=== PATIENT | female | born 1955 | race Two or more races ===

== ENCOUNTER 2017-03-17 21:03 | Inpatient (IN) | payer MEDICAID ==
[~2017-03-17] VITALS: Ht 162.6 cm; Wt 105.0 kg
[~2017-03-17 21:03] MED LIST: BENA40TA2 PO; MELO-85 PO; METF-314 PO; MULT50TA14 OR; SIMV-8 PO
[2017-03-17] MEDS ORDERED: SODIUM CHLORIDE 0.9% 1,000 ML IV ONE (21:53)
[2017-03-17] MEDS ORDERED: SODIUM CHLORIDE 0.9% 1,000 ML IVB ONE (21:54)
[2017-03-17 22:18] LABS: Basophils # (auto) 0 uL; Basophils % (auto) 0.5 % (0.0-2.0); Eosinophils # (auto) 0.2 uL; Eosinophils % (auto) 3.1 % (0.0-7.0); Hematocrit 30.9 % (36.0-46.0); Hemoglobin 10.4 g/dL (12.2-16.2); Lymphocytes % (auto) 13.5 % (10.0-50.0); Mean Corpuscular Hemoglobin 27.3 pg (28.0-32.0); Mean Corpuscular Hgb Conc. 33.6 g/dL (32.0-36.0); Mean Corpuscular Volume 81.3 fL (80.0-100.0); Mean Platelet Volume 9.3 fL (7.4-10.4); Monocytes # (auto) 0.4 uL; Neutrophils % (auto) 77.9 % (37.0-80.0); Platelet Count (auto) 145 10^3/uL (140-450); Red Cell Distribution Width 15.6 % (11.6-16.0); White Blood Cell 7.8 10^3/uL (4.4-10.8)
[2017-03-17] MEDS ORDERED: PANTOPRAZOLE SODIUM 40 MG/10 ML VIAL IV ONE (22:30)
[2017-03-17 22:41] LABS: Albumin 2.2 g/dL (3.4-5.0); BUN/Creatinine Ratio 38.9; Calcium 8.3 mg/dL (8.5-10.1); Potassium 4.3 mmol/L (3.5-5.1)
[2017-03-17 22:46] LABS: Bilirubin, Total 1.1 mg/dL (0.2-1.0); Partial Thromboplastin Time 28.5 sec (22.64-33.71); Total Protein 5.5 g/dL (6.4-8.2)
[2017-03-17 22:47] LABS: INR 1.21 (0.9-1.15); Prothrombin Time 13.2 sec (9.37-12.3)
[2017-03-18] VITALS (15 sets, daily range): BP systolic 80–127; BP diastolic 44–73
[2017-03-18 00:04] LABS: Urine Bilirubin Negative (Negative); Urine Blood 1+ /uL (Negative); Urine Color Yellow (Yellow); Urine Glucose Normal (Normal); Urine Ketone 1+ (Negative); Urine Nitrite Negative (Negative); Urine RBC 13 /hpf (0 - 4); Urine Urobilinogen Normal (Negative); Urine pH 5.5 (5.0-8.0)
[2017-03-18 00:05] LABS: Urine Hyaline Cast F /lpf (0 - 2); Urine Mucus FEW (None Seen); Urine Squamous Epithelial Cell FEW /hpf (<5)
[2017-03-18] MEDS ORDERED: cefTRIAXone 1GM/50ML D5W 50 ML IV ONE (00:45)
[2017-03-18] MEDS ORDERED: ACETAMINOPHEN 325 MG TAB PO PRN (01:30)
[2017-03-18] MEDS ORDERED: MORPHINE SULF INJ 2 MG/ML SYRINGE 1ML IV PRN (01:30)
[2017-03-18] MEDS ORDERED: DEXTROSE (50%) 50ML SYRG IV PRN (01:30)
[2017-03-18] MEDS ORDERED: ALBUMIN 5% 250 ML IV ONE ×2 (01:30→05:15)
[2017-03-18] MEDS ORDERED: NITROGLYCERIN 0.4 MG SL TAB SL PRN (01:30)
[2017-03-18] MEDS: ONDANSETRON HCL 4 MG/2 ML VIAL IV PRN ×2 (02:48→16:53)
[2017-03-18] MEDS: SODIUM CHLORIDE 0.9% 1,000 ML IV SCH ×3 (02:49→21:11)
[2017-03-18 06:09] LABS: Hematocrit 24.6 % (36.0-46.0); Hemoglobin 8.3 g/dL (12.2-16.2)
[2017-03-18] MEDS: InsuLIN REG 1unit/0.01ml Soln (100units/ml) SC SCH ×3 (08:00→17:37)
[2017-03-18] MEDS: ACCU-CHEK COMFORT CURVE STRIP VI SCH ×4 (08:00→23:49)
[2017-03-18] MEDS: PANTOPRAZOLE SODIUM 40 MG/10 ML VIAL IV SCH ×2 (10:30→21:09)
[2017-03-18] MEDS: THIAMINE INJ 100 MG, MULTIPLE VITAMIN 10 ML, FOLIC ACID 1 MG, MAGNESIUM SULF SDV 50% 8 ... IV SCH ×5 (11:22)
[2017-03-18] MEDS ORDERED: OCTREOTIDE ACETATE 100 MCG in SODIUM CHL 0.9% 50 ML IV ONE (15:45)
[2017-03-18] MEDS: OCTREOTIDE ACETATE 500 MCG in SODIUM CHL 0.9% 99 ML IV SCH (16:00)
[2017-03-18 16:44] LABS: Hematocrit 22.9 % (36.0-46.0); Hemoglobin 7.8 g/dL (12.2-16.2)
[2017-03-18 18:17] LABS: Hematocrit 23.1 % (36.0-46.0); Hemoglobin 7.9 g/dL (12.2-16.2)
[2017-03-19] VITALS (13 sets, daily range): BP systolic 101–143; BP diastolic 52–79
[2017-03-19] MEDS: cefTRIAXone 1GM/50ML D5W 50 ML IV SCH (00:21)
[2017-03-19] MEDS: OCTREOTIDE ACETATE 500 MCG in SODIUM CHL 0.9% 99 ML IV SCH ×3 (00:22→22:30)
[2017-03-19 04:53] LABS: Basophils # (auto) 0 uL; Basophils % (auto) 0.4 % (0.0-2.0); DEFINITIVE VIEW TRANSMISSION; Eosinophils # (auto) 0.6 uL; Eosinophils % (auto) 6.8 % (0.0-7.0); Hematocrit 21.5 % (36.0-46.0); Hemoglobin 7.3 g/dL (12.2-16.2); Lymphocytes # (auto) 1.5 uL; Mean Corpuscular Hemoglobin 28.3 pg (28.0-32.0); Mean Corpuscular Hgb Conc. 33.7 g/dL (32.0-36.0); Mean Corpuscular Volume 84.1 fL (80.0-100.0); Mean Platelet Volume 9.1 fL (7.4-10.4); Monocytes # (auto) 0.5 uL; Monocytes % (auto) 6.1 % (0.0-12.0); Neutrophils # (auto) 5.7 uL; Neutrophils % (auto) 68.7 % (37.0-80.0); Platelet Count (auto) 120 10^3/uL (140-450); Red Cell Distribution Width 15.4 % (11.6-16.0); White Blood Cell 8.3 10^3/uL (4.4-10.8)
[2017-03-19 05:04] LABS: Albumin 2.4 g/dL (3.4-5.0); BUN/Creatinine Ratio 70.4; Bilirubin, Total 0.7 mg/dL (0.2-1.0); Calcium 7.4 mg/dL (8.5-10.1); Potassium 4.1 mmol/L (3.5-5.1); Total Protein 4.9 g/dL (6.4-8.2)
[2017-03-19] MEDS: ACCU-CHEK COMFORT CURVE STRIP VI SCH ×3 (05:50→17:49)
[2017-03-19] MEDS: InsuLIN REG 1unit/0.01ml Soln (100units/ml) SC SCH ×4 (05:50→17:49)
[2017-03-19] MEDS ORDERED: LIDOCAINE VISCOUS 2% 15ML UD ONE (08:20)
[2017-03-19] MEDS ORDERED: diphenhdrAMINE HCL 50 MG/1 ML VL ONE (08:20)
[2017-03-19] MEDS ORDERED: SODIUM CHLORIDE LOCK 10 ML ONE (08:20)
[2017-03-19] MEDS ORDERED: FUROSEMIDE 20 MG/2 ML VIAL IV ONE (10:00)
[2017-03-19] MEDS: fentaNYL CITRATE 100 MCG/2 ML VL ONE ×2 (11:00→11:04)
[2017-03-19] MEDS: MIDAZOLAM HCL 5 MG/ML-1ML VIAL ONE ×2 (11:00→11:04)
[2017-03-19] MEDS: PANTOPRAZOLE SODIUM 40 MG/10 ML VIAL IV SCH ×2 (12:28→22:26)
[2017-03-19] MEDS: SODIUM CHLORIDE 0.9% 1,000 ML IV SCH ×2 (12:29→21:08)
[2017-03-19] MEDS: THIAMINE INJ 100 MG, MULTIPLE VITAMIN 10 ML, FOLIC ACID 1 MG, MAGNESIUM SULF SDV 50% 8 ... IV SCH ×5 (12:59)
[2017-03-19] MEDS ORDERED: HYDROmorphone HCL 2 MG/ML VL IV PRN (22:30)
[2017-03-19] MEDS: TEMAZEPAM 15 MG CAP PO PRN (22:51)
[2017-03-20] MEDS: ACCU-CHEK COMFORT CURVE STRIP VI SCH ×5 (00:20→23:57)
[2017-03-20] MEDS: InsuLIN REG 1unit/0.01ml Soln (100units/ml) SC SCH ×5 (00:20→23:56)
[2017-03-20] MEDS: cefTRIAXone 1GM/50ML D5W 50 ML IV SCH (01:14)
[2017-03-20 04:00] VITALS: BP 119/59
[2017-03-20 05:07] LABS: Basophils # (auto) 0 uL; Basophils % (auto) 0.3 % (0.0-2.0); Eosinophils # (auto) 0.3 uL; Hematocrit 25.4 % (36.0-46.0); Hemoglobin 8.6 g/dL (12.2-16.2); Lymphocytes # (auto) 0.9 uL; Lymphocytes % (auto) 18.4 % (10.0-50.0); Mean Corpuscular Hemoglobin 29.3 pg (28.0-32.0); Mean Corpuscular Hgb Conc. 33.7 g/dL (32.0-36.0); Mean Corpuscular Volume 86.8 fL (80.0-100.0); Mean Platelet Volume 9.2 fL (7.4-10.4); Monocytes # (auto) 0.4 uL; Monocytes % (auto) 7.2 % (0.0-12.0); Neutrophils # (auto) 3.3 uL; Neutrophils % (auto) 67.1 % (37.0-80.0); Platelet Count (auto) 82 10^3/uL (140-450); Red Cell Distribution Width 16.1 % (11.6-16.0); White Blood Cell 4.9 10^3/uL (4.4-10.8)
[2017-03-20 05:21] LABS: Albumin 2.3 g/dL (3.4-5.0); BUN/Creatinine Ratio 50.9; Calcium 7.5 mg/dL (8.5-10.1); Potassium 3.5 mmol/L (3.5-5.1)
[2017-03-20 05:23] LABS: Bilirubin, Total 0.8 mg/dL (0.2-1.0); Total Protein 4.8 g/dL (6.4-8.2)
[2017-03-20] MEDS: SODIUM CHLORIDE 0.9% 1,000 ML IV SCH ×2 (07:30→22:02)
[2017-03-20 08:00] VITALS: BP 128/66
[2017-03-20] MEDS: OCTREOTIDE ACETATE 500 MCG in SODIUM CHL 0.9% 99 ML IV SCH (09:26)
[2017-03-20] MEDS: PANTOPRAZOLE 40 MG TAB PO SCH (10:11)
[2017-03-20 12:00] VITALS: BP 126/68
[2017-03-20] MEDS: THIAMINE INJ 100 MG, MULTIPLE VITAMIN 10 ML, FOLIC ACID 1 MG, MAGNESIUM SULF SDV 50% 8 ... IV SCH ×5 (12:28)
[2017-03-20] MEDS: PROPRANOLOL HCL 20 MG TAB PO SCH ×2 (15:52→22:01)
[2017-03-20 16:00] VITALS: BP 137/82
[2017-03-20 20:00] VITALS: BP 123/69
[2017-03-20] MEDS: TEMAZEPAM 15 MG CAP PO PRN (22:00)
[2017-03-20 22:04] VITALS: BP 118/71
[2017-03-21] MEDS: cefTRIAXone 1GM/50ML D5W 50 ML IV SCH (01:00)
[2017-03-21 04:38] VITALS: BP 112/66
[2017-03-21 05:40] LABS: Basophils # (auto) 0 uL; Basophils % (auto) 0.5 % (0.0-2.0); Eosinophils # (auto) 0.4 uL; Eosinophils % (auto) 6.7 % (0.0-7.0); Hematocrit 25.7 % (36.0-46.0); Hemoglobin 8.5 g/dL (12.2-16.2); Lymphocytes # (auto) 0.8 uL; Lymphocytes % (auto) 13.7 % (10.0-50.0); Mean Corpuscular Hgb Conc. 33.1 g/dL (32.0-36.0); Mean Corpuscular Volume 87.6 fL (80.0-100.0); Mean Platelet Volume 9.2 fL (7.4-10.4); Monocytes # (auto) 0.4 uL; Monocytes % (auto) 6.3 % (0.0-12.0); Neutrophils # (auto) 4.1 uL; Neutrophils % (auto) 72.8 % (37.0-80.0); Platelet Count (auto) 87 10^3/uL (140-450); Red Cell Distribution Width 16.4 % (11.6-16.0); SUSPECT VIEW TRANSMISSION; White Blood Cell 5.6 10^3/uL (4.4-10.8)
[2017-03-21 05:59] LABS: Albumin 2.2 g/dL (3.4-5.0); BUN/Creatinine Ratio 26.5; Calcium 7.5 mg/dL (8.5-10.1); Potassium 3.8 mmol/L (3.5-5.1)
[2017-03-21] MEDS: ACCU-CHEK COMFORT CURVE STRIP VI SCH ×3 (06:00→18:01)
[2017-03-21] MEDS: InsuLIN REG 1unit/0.01ml Soln (100units/ml) SC SCH ×3 (06:00→18:01)
[2017-03-21 06:01] LABS: Bilirubin, Total 0.6 mg/dL (0.2-1.0); Total Protein 4.9 g/dL (6.4-8.2)
[2017-03-21] MEDS: PROPRANOLOL HCL 20 MG TAB PO SCH ×3 (06:36→22:01)
[2017-03-21] MEDS: SODIUM CHLORIDE 0.9% 1,000 ML IV SCH ×3 (07:08→20:39)
[2017-03-21 09:00] VITALS: BP 124/66
[2017-03-21] MEDS: PANTOPRAZOLE 40 MG TAB PO SCH (10:29)
[2017-03-21] MEDS: HYDROmorphone HCL 2 MG/ML VL IV PRN ×2 (10:29→22:02)
[2017-03-21] MEDS ORDERED: SORE THROAT SPRAY 6OZ BOTTLE MT PRN (11:00)
[2017-03-21] MEDS: THIAMINE INJ 100 MG, MULTIPLE VITAMIN 10 ML, FOLIC ACID 1 MG, MAGNESIUM SULF SDV 50% 8 ... IV SCH ×5 (12:11)
[2017-03-21 13:00] VITALS: BP 134/59
[2017-03-21 16:48] VITALS: BP 105/56
[2017-03-21 21:37] VITALS: BP 124/58
[2017-03-21] MEDS: TEMAZEPAM 15 MG CAP PO PRN (22:01)
[2017-03-22] MEDS: ACCU-CHEK COMFORT CURVE STRIP VI SCH ×3 (00:27→11:56)
[2017-03-22] MEDS: InsuLIN REG 1unit/0.01ml Soln (100units/ml) SC SCH ×3 (00:27→11:57)
[2017-03-22] MEDS: cefTRIAXone 1GM/50ML D5W 50 ML IV SCH (00:28)
[2017-03-22 04:30] VITALS: BP 103/59
[2017-03-22] MEDS: PROPRANOLOL HCL 20 MG TAB PO SCH (06:29)
[2017-03-22 06:50] LABS: Basophils # (auto) 0 uL; Basophils % (auto) 0.5 % (0.0-2.0); DEFINITIVE VIEW TRANSMISSION; Eosinophils # (auto) 0.3 uL; Eosinophils % (auto) 6.6 % (0.0-7.0); Hematocrit 24.6 % (36.0-46.0); Hemoglobin 8.3 g/dL (12.2-16.2); Lymphocytes # (auto) 0.9 uL; Lymphocytes % (auto) 17.1 % (10.0-50.0); Mean Corpuscular Hemoglobin 29.5 pg (28.0-32.0); Mean Corpuscular Hgb Conc. 33.8 g/dL (32.0-36.0); Mean Corpuscular Volume 87.1 fL (80.0-100.0); Mean Platelet Volume 9.9 fL (7.4-10.4); Monocytes # (auto) 0.4 uL; Neutrophils # (auto) 3.4 uL; Neutrophils % (auto) 67.8 % (37.0-80.0); Platelet Count (auto) 86 10^3/uL (140-450); Red Cell Distribution Width 16.9 % (11.6-16.0); White Blood Cell 5.1 10^3/uL (4.4-10.8)
[2017-03-22 06:59] LABS: Calcium 7.6 mg/dL (8.5-10.1); Potassium 3.8 mmol/L (3.5-5.1)
[2017-03-22 07:01] LABS: BUN/Creatinine Ratio 28.6
[2017-03-22 07:07] LABS: Bilirubin, Total 0.3 mg/dL (0.2-1.0); Total Protein 4.7 g/dL (6.4-8.2)
[2017-03-22] MEDS: PANTOPRAZOLE 40 MG TAB PO SCH (10:29)
[2017-03-22] MEDS: THIAMINE INJ 100 MG, MULTIPLE VITAMIN 10 ML, FOLIC ACID 1 MG, MAGNESIUM SULF SDV 50% 8 ... IV SCH ×5 (11:56)
== END 2017-03-22 13:15 | disposition home or self-care (01) | DRG 950 ==
LOC: EDBD 21:03 → ER 21:06 → TELE 21:07 → TELE-EAST 03-18 02:25 → ICU WEST 03-18 06:50 → TELE-DOU 03-18 10:20 → DOU IN ICU 03-18 10:52 → TELE-EAST 03-20 20:55
PROVIDERS: ADMIT Internal Medicine; ATTEND Internal Medicine
PROC: 30233N1 Transfusion of Nonautologous Red Blood Cells into Peripheral Vein, Percutaneous Approach (ICD-10-PCS; 2017-03-19)
PROC: 06L34CZ Occlusion of Esophageal Vein with Extraluminal Device, Percutaneous Endoscopic Approach (ICD-10-PCS; principal; 2017-03-19 10:55)
DX: K70.30 Alcoholic cirrhosis of liver without ascites (principal); I85.11 Secondary esophageal varices with bleeding; E43 Unspecified severe protein-calorie malnutrition; K76.6 Portal hypertension; D64.9 Anemia, unspecified; E11.9 Type 2 diabetes mellitus without complications; I10 Essential (primary) hypertension; N39.0 Urinary tract infection, site not specified; F15.10 Other stimulant abuse, uncomplicated; E78.5 Hyperlipidemia, unspecified; I70.0 Atherosclerosis of aorta; Z90.49 Acquired absence of other specified parts of digestive tract; Z91.19 Patient's noncompliance with other medical treatment and regimen; Z68.39 Body mass index [BMI] 39.0-39.9, adult; Z82.5 Family history of asthma and other chronic lower respiratory diseases; Z83.3 Family history of diabetes mellitus; F10.10 Alcohol abuse, uncomplicated; Z83.49 Family history of other endocrine, nutritional and metabolic diseases; F17.200 Nicotine dependence, unspecified, uncomplicated; Z71.89 Other specified counseling
CPT/HCPCS: 36415; 43244; 71010; 80053; 80307; 81001; 82962; 83690; 84484; 85014; 85018; 85025; 85610; 85730; 86850; 86900; 86901; 86920; 87040; 87081; 87086; 93005; 96361; 96365; 96375; C9113; J0696; J1815; J2250; J2405

== ENCOUNTER 2017-04-11 00:15 | Inpatient (IN) | payer MEDICAID ==
[~2017-04-11] VITALS: Ht 162.6 cm; Wt 103.7 kg
[~2017-04-11 00:15] MED LIST changes: -BENA40TA2 PO; +BENA40TA7 PO; -METF-314 PO; +METF-371 PO
[2017-04-11 01:44] LABS: Basophils # (auto) 0 uL; Basophils % (auto) 0.2 % (0.0-2.0); CONDITION AutoValidated; Eosinophils # (auto) 0 uL; Hematocrit 30.8 % (36.0-46.0); Lymphocytes # (auto) 0.7 uL; Mean Corpuscular Hemoglobin 27.5 pg (28.0-32.0); Mean Corpuscular Hgb Conc. 32.5 g/dL (32.0-36.0); Mean Corpuscular Volume 84.4 fL (80.0-100.0); Monocytes # (auto) 0.2 uL; Monocytes % (auto) 7.2 % (0.0-12.0); Neutrophils # (auto) 2.3 uL; Neutrophils % (auto) 69.6 % (37.0-80.0); Platelet Count (auto) 98 10^3/uL (140-450); Red Cell Distribution Width 18.4 % (11.6-16.0); White Blood Cell 3.3 10^3/uL (4.4-10.8)
[2017-04-11 01:59] LABS: INR 1.07 (0.9-1.15); Partial Thromboplastin Time 33.8 sec (22.64-33.71); Prothrombin Time 11.7 sec (9.37-12.3)
[2017-04-11 02:00] LABS: Albumin 2.5 g/dL (3.4-5.0); Anion Gap 9 (5-15); Aspartate Aminotransferase 65 U/L (15-37); BUN/Creatinine Ratio 15.4; Blood Urea Nitrogen 10 mg/dL (7-18); Calcium 7.4 mg/dL (8.5-10.1); Carbon Dioxide 25 mmol/L (21-32); Chloride 107 mmol/L (98-107); GFR African American 119 mL/min; GFR Non-African American 98 mL/min; Glucose 98 mg/dL (74-106); Magnesium 1.5 mg/dL (1.6-2.6); Potassium 3.5 mmol/L (3.5-5.1); Sodium 141 mmol/L (136-145)
[2017-04-11 02:04] LABS: Alkaline Phosphatase 111 U/L (45-117); Bilirubin, Total 0.7 mg/dL (0.2-1.0); Total Protein 6.4 g/dL (6.4-8.2)
[2017-04-11 06:09] LABS: Amylase 27 U/L (25-115)
[2017-04-11] MEDS ORDERED: OCTREOTIDE ACETATE 100 MCG in SODIUM CHL 0.9% 50 ML IV ONE (11:15)
[2017-04-11] MEDS ORDERED: DEXTROSE (50%) 50ML SYRG IV PRN (11:45)
[2017-04-11] MEDS ORDERED: ONDANSETRON HCL 4 MG/2 ML VIAL IV PRN (11:45)
[2017-04-11] MEDS ORDERED: ACETAMINOPHEN 325 MG TAB PO PRN (11:45)
[2017-04-11] MEDS ORDERED: NITROGLYCERIN 0.4 MG SL TAB SL PRN (11:45)
[2017-04-11] MEDS ORDERED: HYDROcodone-ACET 5/325MG TAB PO PRN (11:45)
[2017-04-11] MEDS ORDERED: DOCUSATE SOD 100 MG CAP PO PRN (11:45)
[2017-04-11] MEDS ORDERED: MORPHINE SULF INJ 2 MG/ML SYRINGE 1ML IV PRN ×2 (11:45)
[2017-04-11] MEDS ORDERED: FAMOTIDINE (10MG/ML) 2ML VL IV ONE (12:00)
[2017-04-11] MEDS ORDERED: PANTOPRAZOLE SODIUM 40 MG/10 ML VIAL IV ONE (12:00)
[2017-04-11] MEDS: IPRATROPIUM BROM 0.5 MG/2.5ML INH SOL NEB SCH ×2 (12:00→18:25)
[2017-04-11] MEDS: BUDESONIDE (INHALATION) 0.5 MG/2 ML NEB NEB SCH ×2 (12:00→18:25)
[2017-04-11] MEDS: ALBUTEROL SULF 2.5 MG/0.5ML(0.5%) NEB SOLN NEB SCH ×2 (12:00→18:25)
[2017-04-11 12:21] LABS: Hematocrit 30.5 % (36.0-46.0)
[2017-04-11 13:53] VITALS: BP 136/68
[2017-04-11] MEDS: BENAZEPRIL HCL 10 MG TAB PO SCH (14:03)
[2017-04-11] MEDS: SODIUM CHLORIDE 0.9% 1,000 ML IV SCH ×2 (14:04→20:29)
[2017-04-11] MEDS: Boost Glucose Control 8 Ounces PO SCH ×3 (14:24→22:00)
[2017-04-11] MEDS: OCTREOTIDE ACETATE 500 MCG in SODIUM CHL 0.9% 99 ML IV SCH ×2 (14:53→21:15)
[2017-04-11] MEDS: InsuLIN REG 1unit/0.01ml Soln (100units/ml) SC SCH ×2 (17:00→22:00)
[2017-04-11] MEDS: ACCU-CHEK COMFORT CURVE STRIP VI SCH ×2 (17:10→22:00)
[2017-04-11] MEDS ORDERED: MAGNESIUM SULFATE 1GM/100ML 100 ML IV ONE (18:45)
[2017-04-11] MEDS ORDERED: cloNIDine HCL 0.1 MG TAB PO PRN (18:45)
[2017-04-11 21:16] LABS: Hematocrit 28.3 % (36.0-46.0); Hemoglobin 9.3 g/dL (12.2-16.2)
[2017-04-11] MEDS: INSULIN DETEMIR(LEVEMIR) 1unit/0.01ml Soln (100units/ml) SC SCH (22:00)
[2017-04-11] MEDS: FAMOTIDINE (10MG/ML) 2ML VL IV SCH (22:00)
[2017-04-11] MEDS: PANTOPRAZOLE SODIUM 40 MG/10 ML VIAL IV SCH (22:00)
[2017-04-11] MEDS: ATORVASTATIN 20 MG TAB PO SCH (22:00)
[2017-04-11] MEDS: TEMAZEPAM 15 MG CAP PO PRN (23:13)
[2017-04-11] MEDS ORDERED: OCTREOTIDE ACETATE 500 MCG/ML VL ONE (23:34)
[2017-04-12] MEDS: ALBUTEROL SULF 2.5 MG/0.5ML(0.5%) NEB SOLN NEB SCH ×4 (00:05→18:32)
[2017-04-12] MEDS: IPRATROPIUM BROM 0.5 MG/2.5ML INH SOL NEB SCH ×4 (00:05→18:32)
[2017-04-12 03:49] LABS: Basophils # (auto) 0 uL; Basophils % (auto) 0.7 % (0.0-2.0); CONDITION AutoValidated; DEFINITIVE SEE PRINTOUT; Eosinophils # (auto) 0 uL; Eosinophils % (auto) 0.8 % (0.0-7.0); Hematocrit 27.7 % (36.0-46.0); Hemoglobin 9.1 g/dL (12.2-16.2); Lymphocytes # (auto) 0.6 uL; Lymphocytes % (auto) 37.3 % (10.0-50.0); Mean Corpuscular Hemoglobin 27.4 pg (28.0-32.0); Mean Corpuscular Hgb Conc. 32.9 g/dL (32.0-36.0); Mean Corpuscular Volume 83.3 fL (80.0-100.0); Mean Platelet Volume 10.3 fL (7.4-10.4); Monocytes # (auto) 0.2 uL; Monocytes % (auto) 12.3 % (0.0-12.0); Neutrophils # (auto) 0.8 uL; Neutrophils % (auto) 48.9 % (37.0-80.0); Platelet Count (auto) 79 10^3/uL (140-450); Red Cell Distribution Width 17.8 % (11.6-16.0)
[2017-04-12 04:13] LABS: White Blood Cell 1.7 10^3/uL (4.4-10.8)
[2017-04-12 04:18] LABS: Albumin 2.3 g/dL (3.4-5.0); BUN/Creatinine Ratio 12.5; Magnesium 1.6 mg/dL (1.6-2.6); Potassium 3.5 mmol/L (3.5-5.1)
[2017-04-12 04:21] LABS: Bilirubin, Total 0.6 mg/dL (0.2-1.0); Total Protein 5.8 g/dL (6.4-8.2)
[2017-04-12] MEDS: SODIUM CHLORIDE 0.9% 1,000 ML IV SCH ×3 (04:38→21:02)
[2017-04-12] MEDS: Boost Glucose Control 8 Ounces PO SCH ×4 (06:00→22:26)
[2017-04-12] MEDS: BUDESONIDE (INHALATION) 0.5 MG/2 ML NEB NEB SCH ×2 (07:16→18:32)
[2017-04-12] MEDS: ACCU-CHEK COMFORT CURVE STRIP VI SCH ×4 (07:53→22:25)
[2017-04-12] MEDS: InsuLIN REG 1unit/0.01ml Soln (100units/ml) SC SCH ×4 (07:53→22:00)
[2017-04-12] MEDS: OCTREOTIDE ACETATE 500 MCG in SODIUM CHL 0.9% 99 ML IV SCH ×2 (08:16→16:58)
[2017-04-12 10:26] LABS: Urine RBC None Seen /hpf (0 - 4)
[2017-04-12] MEDS ORDERED: ALBU18 IN (10:27)
[2017-04-12] MEDS ORDERED: PANT1INJ3 PO (10:27)
[2017-04-12] MEDS ORDERED: FLUT110A INH (10:27)
[2017-04-12] MEDS ORDERED: TRAM50TA2 PO (10:27)
[2017-04-12] MEDS ORDERED: PRO20T PO (10:27)
[2017-04-12] MEDS ORDERED: INSLANTI SC (10:28)
[2017-04-12] MEDS ORDERED: MELO-85 PO (10:28)
[2017-04-12 10:33] LABS: Urine Bilirubin Negative (Negative); Urine Color Yellow (Yellow); Urine Glucose Normal (Normal); Urine Ketone Negative (Negative); Urine Nitrite Negative (Negative); Urine Squamous Epithelial Cell FEW /hpf (<5); Urine Urobilinogen Normal (Negative); Urine pH 6.5 (5.0-8.0)
[2017-04-12 10:34] LABS: Urine Blood 1+ /uL (Negative)
[2017-04-12] MEDS ORDERED: cefTRIAXone 1GM/50ML D5W 50 ML IV ONE (12:00)
[2017-04-12] MEDS: PANTOPRAZOLE SODIUM 40 MG/10 ML VIAL IV SCH ×2 (12:10→22:28)
[2017-04-12] MEDS: MULTIPLE VITAMIN TAB PO SCH (12:10)
[2017-04-12] MEDS: BENAZEPRIL HCL 10 MG TAB PO SCH (12:10)
[2017-04-12] MEDS: FAMOTIDINE (10MG/ML) 2ML VL IV SCH ×2 (12:11→22:28)
[2017-04-12] MEDS: metroNIDAZOLE 250MG/50 ML 50 ML IV SCH ×2 (14:56→22:28)
[2017-04-12] MEDS: ATORVASTATIN 20 MG TAB PO SCH (22:26)
[2017-04-12] MEDS: INSULIN DETEMIR(LEVEMIR) 1unit/0.01ml Soln (100units/ml) SC SCH (22:26)
[2017-04-12] MEDS: TEMAZEPAM 15 MG CAP PO PRN (22:39)
[2017-04-13] MEDS: ALBUTEROL SULF 2.5 MG/0.5ML(0.5%) NEB SOLN NEB SCH ×4 (00:25→19:09)
[2017-04-13] MEDS: IPRATROPIUM BROM 0.5 MG/2.5ML INH SOL NEB SCH ×4 (00:25→19:09)
[2017-04-13] MEDS: OCTREOTIDE ACETATE 500 MCG in SODIUM CHL 0.9% 99 ML IV SCH ×3 (03:20→23:32)
[2017-04-13 04:08] LABS: Basophils # (auto) 0 uL; Basophils % (auto) 0.7 % (0.0-2.0); CONDITION AutoValidated; DEFINITIVE SEE PRINTOUT; Eosinophils # (auto) 0.1 uL; Eosinophils % (auto) 3.7 % (0.0-7.0); Hematocrit 28.6 % (36.0-46.0); Hemoglobin 9.5 g/dL (12.2-16.2); Lymphocytes # (auto) 0.7 uL; Lymphocytes % (auto) 36.2 % (10.0-50.0); Mean Corpuscular Hemoglobin 27.8 pg (28.0-32.0); Mean Corpuscular Hgb Conc. 33.2 g/dL (32.0-36.0); Mean Corpuscular Volume 83.7 fL (80.0-100.0); Mean Platelet Volume 9.9 fL (7.4-10.4); Monocytes # (auto) 0.1 uL; Neutrophils # (auto) 0.9 uL; Neutrophils % (auto) 51.4 % (37.0-80.0); Red Cell Distribution Width 17.8 % (11.6-16.0)
[2017-04-13 04:10] LABS: Platelet Count (auto) 75 10^3/uL (140-450); White Blood Cell 1.8 10^3/uL (4.4-10.8)
[2017-04-13 04:14] LABS: Albumin 2.3 g/dL (3.4-5.0); BUN/Creatinine Ratio 13.6; Bilirubin, Total 0.4 mg/dL (0.2-1.0); Calcium 7.3 mg/dL (8.5-10.1); Potassium 3.5 mmol/L (3.5-5.1); Total Protein 5.7 g/dL (6.4-8.2)
[2017-04-13] MEDS: SODIUM CHLORIDE 0.9% 1,000 ML IV SCH ×3 (05:22→23:09)
[2017-04-13] MEDS: metroNIDAZOLE 250MG/50 ML 50 ML IV SCH ×3 (05:34→22:48)
[2017-04-13] MEDS: Boost Glucose Control 8 Ounces PO SCH ×4 (05:52→22:00)
[2017-04-13] MEDS: ACCU-CHEK COMFORT CURVE STRIP VI SCH ×4 (06:23→22:00)
[2017-04-13] MEDS: InsuLIN REG 1unit/0.01ml Soln (100units/ml) SC SCH ×4 (06:23→22:52)
[2017-04-13] MEDS: FAMOTIDINE (10MG/ML) 2ML VL IV SCH ×2 (09:34→23:04)
[2017-04-13] MEDS: cefTRIAXone 1GM/50ML D5W 50 ML IV SCH (09:34)
[2017-04-13] MEDS: PANTOPRAZOLE SODIUM 40 MG/10 ML VIAL IV SCH ×2 (09:34→22:47)
[2017-04-13] MEDS: BENAZEPRIL HCL 10 MG TAB PO SCH (09:35)
[2017-04-13] MEDS: MULTIPLE VITAMIN TAB PO SCH (09:35)
[2017-04-13] MEDS: BUDESONIDE (INHALATION) 0.5 MG/2 ML NEB NEB SCH ×2 (10:00→19:09)
[2017-04-13 18:20] VITALS: BP 163/80
[2017-04-13 20:00] VITALS: BP 157/82
[2017-04-13 20:36] VITALS: BP 157/82
[2017-04-13 22:00] VITALS: BP 157/82
[2017-04-13] MEDS: ATORVASTATIN 20 MG TAB PO SCH (22:47)
[2017-04-13] MEDS ORDERED: NALOXONE HCL 0.4 MG/ML VIAL ONE (22:53)
[2017-04-13] MEDS: TEMAZEPAM 15 MG CAP PO PRN (23:04)
[2017-04-13] MEDS: INSULIN DETEMIR(LEVEMIR) 1unit/0.01ml Soln (100units/ml) SC SCH (23:08)
[2017-04-14] VITALS (7 sets, daily range): BP systolic 136–165; BP diastolic 76–93
[2017-04-14] MEDS: IPRATROPIUM BROM 0.5 MG/2.5ML INH SOL NEB SCH ×4 (00:41→19:56)
[2017-04-14] MEDS: ALBUTEROL SULF 2.5 MG/0.5ML(0.5%) NEB SOLN NEB SCH ×4 (00:41→19:56)
[2017-04-14] MEDS: Boost Glucose Control 8 Ounces PO SCH ×4 (06:00→21:55)
[2017-04-14] MEDS: ACCU-CHEK COMFORT CURVE STRIP VI SCH ×4 (06:19→22:21)
[2017-04-14] MEDS: InsuLIN REG 1unit/0.01ml Soln (100units/ml) SC SCH ×4 (06:19→22:24)
[2017-04-14 06:24] LABS: Basophils # (auto) 0 uL; Basophils % (auto) 0.5 % (0.0-2.0); CONDITION Y; DEFINITIVE SEE PRINTOUT; Eosinophils # (auto) 0.1 uL; Eosinophils % (auto) 6.5 % (0.0-7.0); Hematocrit 27.6 % (36.0-46.0); Hemoglobin 9.1 g/dL (12.2-16.2); Lymphocytes # (auto) 0.7 uL; Lymphocytes % (auto) 36.7 % (10.0-50.0); Mean Corpuscular Hemoglobin 27.3 pg (28.0-32.0); Mean Corpuscular Volume 82.7 fL (80.0-100.0); Mean Platelet Volume 10.1 fL (7.4-10.4); Monocytes # (auto) 0.2 uL; Monocytes % (auto) 8.5 % (0.0-12.0); Neutrophils # (auto) 0.9 uL; Neutrophils % (auto) 47.8 % (37.0-80.0); Platelet Count (auto) 69 10^3/uL (140-450); Red Cell Distribution Width 17.8 % (11.6-16.0)
[2017-04-14] MEDS: SODIUM CHLORIDE 0.9% 1,000 ML IV SCH ×3 (06:24→22:29)
[2017-04-14] MEDS: metroNIDAZOLE 250MG/50 ML 50 ML IV SCH ×3 (06:25→21:55)
[2017-04-14 06:44] LABS: White Blood Cell 1.8 10^3/uL (4.4-10.8)
[2017-04-14 06:45] LABS: Albumin 2.3 g/dL (3.4-5.0); BUN/Creatinine Ratio 15.8; Bilirubin, Total 0.5 mg/dL (0.2-1.0); Calcium 7.4 mg/dL (8.5-10.1); Potassium 3.2 mmol/L (3.5-5.1); Total Protein 5.4 g/dL (6.4-8.2)
[2017-04-14] MEDS: BUDESONIDE (INHALATION) 0.5 MG/2 ML NEB NEB SCH ×2 (06:54→19:56)
[2017-04-14] MEDS: OCTREOTIDE ACETATE 500 MCG in SODIUM CHL 0.9% 99 ML IV SCH ×2 (08:29→19:15)
[2017-04-14] MEDS: cefTRIAXone 1GM/50ML D5W 50 ML IV SCH (08:31)
[2017-04-14] MEDS: PANTOPRAZOLE SODIUM 40 MG/10 ML VIAL IV SCH ×2 (09:21→21:55)
[2017-04-14] MEDS: FAMOTIDINE (10MG/ML) 2ML VL IV SCH ×2 (09:21→22:04)
[2017-04-14] MEDS: MULTIPLE VITAMIN TAB PO SCH (09:21)
[2017-04-14] MEDS: BENAZEPRIL HCL 10 MG TAB PO SCH (09:22)
[2017-04-14] MEDS ORDERED: POTASSIUM CHLORIDE 40 MEQ, LIDOCAINE 1% (LOCAL ANESTH.) 4 ML in SODIUM CHL 0.9% 250 ML IV ONE (10:00)
[2017-04-14] MEDS ORDERED: SODIUM CHLORIDE LOCK 10 ML ONE (13:42)
[2017-04-14] MEDS ORDERED: diphenhdrAMINE HCL 50 MG/1 ML VL ONE (13:42)
[2017-04-14] MEDS ORDERED: LIDOCAINE VISCOUS 2% 15ML UD ONE (13:42)
[2017-04-14] MEDS: MIDAZOLAM HCL 5 MG/ML-1ML VIAL ONE ×2 (16:12→16:15)
[2017-04-14] MEDS: fentaNYL CITRATE 100 MCG/2 ML VL ONE ×2 (16:12→16:15)
[2017-04-14] MEDS ORDERED: GOLYTELY 4L KIT PO ONE (16:30)
[2017-04-14] MEDS: ATORVASTATIN 20 MG TAB PO SCH (21:55)
[2017-04-14] MEDS: INSULIN DETEMIR(LEVEMIR) 1unit/0.01ml Soln (100units/ml) SC SCH (22:00)
[2017-04-14] MEDS: TEMAZEPAM 15 MG CAP PO PRN (22:27)
[2017-04-15] MEDS: IPRATROPIUM BROM 0.5 MG/2.5ML INH SOL NEB SCH ×2 (00:46→07:02)
[2017-04-15] MEDS: ALBUTEROL SULF 2.5 MG/0.5ML(0.5%) NEB SOLN NEB SCH ×2 (00:47→07:02)
[2017-04-15 01:06] VITALS: BP 148/90
[2017-04-15] MEDS: OCTREOTIDE ACETATE 500 MCG in SODIUM CHL 0.9% 99 ML IV SCH ×2 (01:41→15:15)
[2017-04-15 04:53] VITALS: BP 134/80
[2017-04-15] MEDS: SODIUM CHLORIDE 0.9% 1,000 ML IV SCH (05:31)
[2017-04-15] MEDS: Boost Glucose Control 8 Ounces PO SCH ×2 (05:32→11:11)
[2017-04-15] MEDS: metroNIDAZOLE 250MG/50 ML 50 ML IV SCH ×2 (05:32→13:01)
[2017-04-15] MEDS: ACCU-CHEK COMFORT CURVE STRIP VI SCH ×2 (05:56→11:10)
[2017-04-15] MEDS: InsuLIN REG 1unit/0.01ml Soln (100units/ml) SC SCH ×2 (05:56→11:18)
[2017-04-15] MEDS ORDERED: GOLYTELY 4L KIT PO ONE (06:00)
[2017-04-15] MEDS ORDERED: MAGNESIUM CITRATE SOLUTION 300 ML BTL PO ONE (06:00)
[2017-04-15] MEDS: BUDESONIDE (INHALATION) 0.5 MG/2 ML NEB NEB SCH (07:03)
[2017-04-15 07:27] LABS: Albumin 2.3 g/dL (3.4-5.0); Calcium 7.6 mg/dL (8.5-10.1); Potassium 3.6 mmol/L (3.5-5.1)
[2017-04-15 07:30] LABS: BUN/Creatinine Ratio 12.2; Bilirubin, Total 0.5 mg/dL (0.2-1.0); Total Protein 5.4 g/dL (6.4-8.2)
[2017-04-15 07:37] LABS: Basophils # (auto) 0 uL; Basophils % (auto) 0.9 % (0.0-2.0); CONDITION Y; DEFINITIVE SEE PRINTOUT; Eosinophils # (auto) 0.1 uL; Eosinophils % (auto) 5.2 % (0.0-7.0); Hematocrit 26.8 % (36.0-46.0); Hemoglobin 8.7 g/dL (12.2-16.2); Lymphocytes # (auto) 0.5 uL; Lymphocytes % (auto) 28.9 % (10.0-50.0); Mean Corpuscular Hemoglobin 26.8 pg (28.0-32.0); Mean Corpuscular Hgb Conc. 32.6 g/dL (32.0-36.0); Mean Corpuscular Volume 82.3 fL (80.0-100.0); Mean Platelet Volume 11.2 fL (7.4-10.4); Monocytes # (auto) 0.1 uL; Monocytes % (auto) 8.2 % (0.0-12.0); Neutrophils % (auto) 56.8 % (37.0-80.0); Platelet Count (auto) 66 10^3/uL (140-450); Red Cell Distribution Width 17.8 % (11.6-16.0); SUSPECT SEE PRINTOUT
[2017-04-15 08:00] VITALS: BP 131/70
[2017-04-15 08:02] LABS: White Blood Cell 1.7 10^3/uL (4.4-10.8)
[2017-04-15] MEDS: cefTRIAXone 1GM/50ML D5W 50 ML IV SCH (08:16)
[2017-04-15 08:55] VITALS: BP 131/70
[2017-04-15] MEDS: MULTIPLE VITAMIN TAB PO SCH (08:59)
[2017-04-15] MEDS: PANTOPRAZOLE SODIUM 40 MG/10 ML VIAL IV SCH (08:59)
[2017-04-15] MEDS: FAMOTIDINE (10MG/ML) 2ML VL IV SCH (08:59)
[2017-04-15] MEDS: BENAZEPRIL HCL 10 MG TAB PO SCH (09:00)
[2017-04-15] MEDS ORDERED: FLUMAZENIL 0.1 MG/ML INJ 10ML MDV IV ONE (09:05)
[2017-04-15] MEDS ORDERED: NALOXONE HCL 0.4 MG/ML VIAL ONE (09:05)
[2017-04-15] MEDS ORDERED: diphenhdrAMINE HCL 50 MG/1 ML VL ONE (09:06)
[2017-04-15] MEDS ORDERED: SODIUM CHLORIDE LOCK 10 ML ONE (09:06)
[2017-04-15] MEDS ORDERED: MIDAZOLAM HCL 5 MG/ML-1ML VIAL ONE (09:06)
[2017-04-15] MEDS ORDERED: fentaNYL CITRATE 100 MCG/2 ML VL ONE (09:06)
[2017-04-15 12:37] VITALS: BP 124/56
[2017-04-15 13:01] VITALS: BP 131/70
== END 2017-04-15 15:45 | disposition home or self-care (01) | DRG 253 ==
LOC: EDBD 00:15 → ER 00:15 → TELE 00:16 → TELE-E-ADS 04-13 16:31 → TELE-WESTW 04-13 18:22
PROVIDERS: ADMIT Internal Medicine; ATTEND Internal Medicine
PROC: 0DJ08ZZ Inspection of Upper Intestinal Tract, Via Natural or Artificial Opening Endoscopic (ICD-10-PCS; principal; 2017-04-14 16:07)
DX: K92.2 Gastrointestinal hemorrhage, unspecified (principal); E43 Unspecified severe protein-calorie malnutrition; D61.818 Other pancytopenia; K70.31 Alcoholic cirrhosis of liver with ascites; K76.6 Portal hypertension; E83.42 Hypomagnesemia; K52.9 Noninfective gastroenteritis and colitis, unspecified; R16.1 Splenomegaly, not elsewhere classified; K72.90 Hepatic failure, unspecified without coma; N39.0 Urinary tract infection, site not specified; E83.51 Hypocalcemia; E10.9 Type 1 diabetes mellitus without complications; E78.5 Hyperlipidemia, unspecified; D63.8 Anemia in other chronic diseases classified elsewhere; F10.10 Alcohol abuse, uncomplicated; I10 Essential (primary) hypertension; I70.0 Atherosclerosis of aorta; I83.90 Asymptomatic varicose veins of unspecified lower extremity; J45.909 Unspecified asthma, uncomplicated; K29.60 Other gastritis without bleeding; K31.9 Disease of stomach and duodenum, unspecified; Z79.4 Long term (current) use of insulin; Z83.3 Family history of diabetes mellitus; Z90.49 Acquired absence of other specified parts of digestive tract; Z91.19 Patient's noncompliance with other medical treatment and regimen; Z68.39 Body mass index [BMI] 39.0-39.9, adult
CPT/HCPCS: 36415; 43235; 71010; 74176; 80053; 81001; 82150; 82270; 82962; 83036; 83690; 83735; 84484; 85014; 85018; 85025; 85610; 85730; 86850; 86870; 86900; 86901; 87081; 87493; 93005; 94640; 94761; 96374; 96375; C9113; J0696; J1815; J2001; J2250; J3490

== ENCOUNTER 2023-03-25 22:40 | Inpatient (IN) | payer OTHER ==
[~2023-03-25] VITALS: Ht 160 cm; Wt 79.6 kg
[~2023-03-25 22:40] MED LIST changes: +ALBU18 IN; -BENA40TA7 PO; +BENA40TA70 PO; +FERR325T24 PO; +FLUT110A INH; +FURO40TA4 PO; +INSLANTI SC; +MELO-335 PO; -MELO-85 PO; +MELO7.5T7 PO; +METO25TA5 PO; +PANT1INJ3 PO; +PRO20T PO; +PROP60CA34 PO; -SIMV-8 PO; +SIMV20TA20 PO; +SPIR25TA8 PO; +SUCR1TAB22 OR; +TRAM50TA2 PO
[2023-03-26] VITALS (7 sets, daily range): BP systolic 102–126; BP diastolic 50–65
[2023-03-26] MEDS ORDERED: DEXTROSE (50%) 50ML SYRG IV PRN ×4 (01:45→11:00)
[2023-03-26] MEDS ORDERED: NITROGLYCERIN 0.4 MG SL TAB SL PRN (01:45)
[2023-03-26] MEDS ORDERED: ONDANSETRON HCL 4 MG/2 ML VIAL IV PRN (01:45)
[2023-03-26] MEDS ORDERED: ALBUTEROL SULF 2.5 MG/0.5ML(0.5%) NEB SOLN NEB PRN (01:45)
[2023-03-26] MEDS ORDERED: ACETAMINOPHEN 325 MG TAB PO PRN (01:45)
[2023-03-26] MEDS ORDERED: MORPHINE SULFATE INJ 2 MG/ml SYRG IV PRN (01:45)
[2023-03-26 02:27] LABS: Basophils # (auto) 0 10 ^3/uL (0-0.2); Basophils % (auto) 0.2 % (0.0-2.0); Eosinophils # (auto) 0 10 ^3/uL (0-0.8); Hematocrit 30.7 % (36.0-46.0); Hemoglobin 10.3 g/dL (12.2-16.2); Lymphocytes # (auto) 0.3 10 ^3/uL (0.4-5.4); Lymphocytes % (auto) 5.8 % (10.0-50.0); Mean Corpuscular Hemoglobin 28.4 pg (28.0-32.0); Mean Corpuscular Hgb Conc. 33.6 g/dL (32.0-36.0); Mean Corpuscular Volume 84.5 fL (80.0-100.0); Monocytes # (auto) 0.1 10 ^3/uL (0-1.3); Monocytes % (auto) 1.7 % (0.0-12.0); Neutrophils # (auto) 5.1 10 ^3/uL (1.6-8.6); Neutrophils % (auto) 92.3 % (37.0-80.0); Nucleated Red Blood Cells % 0.1 %; Red Blood Cells 3.63 10^6/uL (4.0-5.20); Red Cell Distribution Width 15.6 % (11.8-14.3); White Blood Cell 5.5 10^3/uL (4.4-10.8)
[2023-03-26 02:41] LABS: Albumin 1.6 g/dL (3.4-5.0); Calcium 8.3 mg/dL (8.5-10.1); Potassium 3.9 mmol/L (3.5-5.1)
[2023-03-26 02:43] LABS: Bilirubin, Total 1.1 mg/dL (0.2-1.0)
[2023-03-26 02:54] LABS: BUN/Creatinine Ratio 25.9 (10.0-20.0)
[2023-03-26] MEDS ORDERED: InsuLIN REG 1unit/0.01ml Soln (100units/ml) SC SCH ×3 (04:00→08:00)
[2023-03-26] MEDS ORDERED: ACCU-CHEK COMFORT CURVE STRIP VI SCH ×3 (04:00→08:00)
[2023-03-26] MEDS ORDERED: LEVOTHYROXINE SODIUM 50 MCG TAB PO SCH (07:00)
[2023-03-26] MEDS ORDERED: FUROSEMIDE 40 MG TAB PO SCH (10:00)
[2023-03-26] MEDS ORDERED: levoFLOXacin 500MG 100 ML IV SCH (10:00)
[2023-03-26] MEDS ORDERED: ENOXAPARIN SOD 40 MG/0.4 ML SYRINGE SC SCH (10:00)
[2023-03-26] MEDS ORDERED: PANTOPRAZOLE 40 MG TAB PO SCH (10:00)
[2023-03-26] MEDS ORDERED: cefTRIAXone 1GM/50ML D5W 50 ML IV ONE (10:45)
[2023-03-26] MEDS ORDERED: INSULIN LANTUS (GLARGINE) 1 /0.01ml (100units/ml) SC ONE (10:45)
[2023-03-26] MEDS ORDERED: predniSONE 20 MG TAB PO ONE (10:45)
[2023-03-26] MEDS ORDERED: PANTOPRAZOLE 40 MG/10 ML VIAL INJ IV ONE (11:00)
[2023-03-26] MEDS ORDERED: AZITHROMYCIN 500MG/ 250ML 250 ML IV ONE (11:30)
[2023-03-26] MEDS: SODIUM CHLORIDE 0.9% 1,000 ML IV SCH (12:32)
[2023-03-26] MEDS: Glucerna Carbsteady SHAKE Vanilla 8oz PO SCH ×2 (12:33→17:31)
[2023-03-26] MEDS: ACCU-CHEK COMFORT CURVE STRIP VI SCH ×3 (12:33→23:36)
[2023-03-26] MEDS: InsuLIN REG 1unit/0.01ml Soln (100units/ml) SC SCH ×3 (12:34→23:40)
[2023-03-26] MEDS: ALBUTEROL SULF 2.5 MG/0.5ML(0.5%) NEB SOLN NEB SCH ×3 (14:55→22:23)
[2023-03-26] MEDS: IPRATROPIUM BROM 0.5 MG/2.5ML INH SOL NEB SCH ×3 (14:55→22:23)
[2023-03-26] MEDS ORDERED: LEVO50TA7 PO (18:44)
[2023-03-26] MEDS: methylPREDNISolone SOD SUCC 40 MG/ML VL IV SCH (21:44)
[2023-03-26] MEDS: ATORVASTATIN 20 MG TAB PO SCH (21:44)
[2023-03-26 23:48] LABS: Urine Bacteria FEW /hpf (None Seen); Urine Blood 1+ /uL (Negative); Urine Specific Gravity 1.017 (1.001-1.035); Urine WBC 3 /hpf (0 - 5)
[2023-03-27] MEDS: SODIUM CHLORIDE 0.9% 1,000 ML IV SCH ×2 (00:20→04:49)
[2023-03-27 05:00] VITALS: BP 102/58
[2023-03-27 05:07] LABS: Basophils # (auto) 0 10 ^3/uL (0-0.2); Basophils % (auto) 0.1 % (0.0-2.0); Eosinophils # (auto) 0 10 ^3/uL (0-0.8); Hematocrit 27.8 % (36.0-46.0); Hemoglobin 10.2 g/dL (12.2-16.2); Lymphocytes # (auto) 0.4 10 ^3/uL (0.4-5.4); Mean Corpuscular Hemoglobin 30.1 pg (28.0-32.0); Mean Corpuscular Volume 82.4 fL (80.0-100.0); Monocytes # (auto) 0.2 10 ^3/uL (0-1.3); Monocytes % (auto) 1.8 % (0.0-12.0); Neutrophils # (auto) 8.2 10 ^3/uL (1.6-8.6); Neutrophils % (auto) 94.1 % (37.0-80.0); Red Blood Cells 3.37 10^6/uL (4.0-5.20); Red Cell Distribution Width 15.3 % (11.8-14.3); White Blood Cell 8.7 10^3/uL (4.4-10.8)
[2023-03-27 05:12] LABS: Mean Corpuscular Hgb Conc. 36.5 g/dL (32.0-36.0)
[2023-03-27] MEDS: ACCU-CHEK COMFORT CURVE STRIP VI SCH ×4 (05:24→21:43)
[2023-03-27 05:28] LABS: Calcium 8.1 mg/dL (8.5-10.1); Potassium 3.8 mmol/L (3.5-5.1)
[2023-03-27 05:34] LABS: Albumin 1.8 g/dL (3.4-5.0); BUN/Creatinine Ratio 30.2 (10.0-20.0); Bilirubin, Total 0.6 mg/dL (0.2-1.0); Total Protein 5.8 g/dL (6.4-8.2)
[2023-03-27] MEDS: InsuLIN REG 1unit/0.01ml Soln (100units/ml) SC SCH ×4 (05:35→22:04)
[2023-03-27] MEDS: ALBUTEROL SULF 2.5 MG/0.5ML(0.5%) NEB SOLN NEB SCH ×6 (07:00→22:06)
[2023-03-27] MEDS: IPRATROPIUM BROM 0.5 MG/2.5ML INH SOL NEB SCH ×6 (07:00→22:06)
[2023-03-27] MEDS: methylPREDNISolone SOD SUCC 40 MG/ML VL IV SCH ×2 (09:30→21:26)
[2023-03-27] MEDS ORDERED: predniSONE 20 MG TAB PO SCH (10:00)
[2023-03-27] MEDS ORDERED: INSULIN LANTUS (GLARGINE) 1 /0.01ml (100units/ml) SC ONE (10:15)
[2023-03-27] MEDS: PANTOPRAZOLE 40 MG/10 ML VIAL INJ IV SCH (10:22)
[2023-03-27] MEDS: cefTRIAXone 1GM/50ML D5W 50 ML IV SCH (10:22)
[2023-03-27] MEDS: AZITHROMYCIN 500MG/ 250ML 250 ML IV SCH (13:27)
[2023-03-27] MEDS: Glucerna Carbsteady SHAKE Vanilla 8oz PO SCH ×3 (14:55→18:00)
[2023-03-27 17:09] VITALS: BP 137/84
[2023-03-27] MEDS: ATORVASTATIN 20 MG TAB PO SCH (21:25)
[2023-03-27 22:00] VITALS: BP 129/69
[2023-03-27] MEDS ORDERED: INSULIN LANTUS (GLARGINE) 1 /0.01ml (100units/ml) SC SCH (22:00)
[2023-03-27] MEDS: INSULIN LANTUS (GLARGINE) 1 /0.01ml (100units/ml) SC SCH (22:06)
[2023-03-28] MEDS ORDERED: LOPERAMIDE HCL 2 MG CAP/TAB PO PRN (01:45)
[2023-03-28] MEDS: SODIUM CHLORIDE 0.9% 1,000 ML IV SCH ×2 (03:00→16:20)
[2023-03-28 05:00] VITALS: BP 129/63
[2023-03-28] MEDS: ACCU-CHEK COMFORT CURVE STRIP VI SCH ×2 (05:16→12:29)
[2023-03-28 05:33] LABS: Basophils # (auto) 0 10 ^3/uL (0-0.2); Basophils % (auto) 0.1 % (0.0-2.0); Eosinophils # (auto) 0 10 ^3/uL (0-0.8); Hematocrit 29.8 % (36.0-46.0); Hemoglobin 10.1 g/dL (12.2-16.2); Lymphocytes # (auto) 0.3 10 ^3/uL (0.4-5.4); Lymphocytes % (auto) 3.2 % (10.0-50.0); Mean Corpuscular Hemoglobin 28.7 pg (28.0-32.0); Mean Corpuscular Hgb Conc. 33.8 g/dL (32.0-36.0); Mean Corpuscular Volume 84.9 fL (80.0-100.0); Monocytes # (auto) 0.3 10 ^3/uL (0-1.3); Monocytes % (auto) 3.1 % (0.0-12.0); Neutrophils # (auto) 7.6 10 ^3/uL (1.6-8.6); Neutrophils % (auto) 93.6 % (37.0-80.0); Red Blood Cells 3.51 10^6/uL (4.0-5.20); Red Cell Distribution Width 15.4 % (11.8-14.3); White Blood Cell 8.1 10^3/uL (4.4-10.8)
[2023-03-28 05:35] LABS: INR 1.24 (0.9-1.15); Partial Thromboplastin Time 30.2 sec (24.6-33.4)
[2023-03-28] MEDS: InsuLIN REG 1unit/0.01ml Soln (100units/ml) SC SCH ×2 (05:37→12:30)
[2023-03-28 05:45] LABS: BUN/Creatinine Ratio 31.8 (10.0-20.0); Calcium 8.6 mg/dL (8.5-10.1); Magnesium 2.2 mg/dL (1.6-2.6)
[2023-03-28] MEDS: ALBUTEROL SULF 2.5 MG/0.5ML(0.5%) NEB SOLN NEB SCH ×3 (06:00→13:58)
[2023-03-28] MEDS: IPRATROPIUM BROM 0.5 MG/2.5ML INH SOL NEB SCH ×3 (06:00→13:58)
[2023-03-28] MEDS: Glucerna Carbsteady SHAKE Vanilla 8oz PO SCH ×2 (08:00→12:04)
[2023-03-28] MEDS: PANTOPRAZOLE 40 MG/10 ML VIAL INJ IV SCH (08:22)
[2023-03-28] MEDS: cefTRIAXone 1GM/50ML D5W 50 ML IV SCH (08:28)
[2023-03-28 08:37] VITALS: BP 148/74
[2023-03-28] MEDS: INSULIN LANTUS (GLARGINE) 1 /0.01ml (100units/ml) SC SCH (10:00)
[2023-03-28] MEDS: methylPREDNISolone SOD SUCC 40 MG/ML VL IV SCH (10:32)
[2023-03-28] MEDS: AZITHROMYCIN 500MG/ 250ML 250 ML IV SCH (10:33)
[2023-03-28 12:38] VITALS: BP 121/70
[2023-03-28] MEDS ORDERED: LEVO750T8 PO (12:51)
[2023-03-28 15:41] VITALS: BP 148/74
[2023-03-28 17:23] VITALS: BP 137/70
== END 2023-03-28 17:30 | disposition home or self-care (01) | DRG 193 ==
LOC: TELE-CENTR 22:40
PROVIDERS: ADMIT Internal Medicine; ATTEND Internal Medicine
DX: J18.9 Pneumonia, unspecified organism (principal); J96.20 Acute and chronic respiratory failure, unspecified whether with hypoxia or hypercapnia; D68.9 Coagulation defect, unspecified; E44.0 Moderate protein-calorie malnutrition; J44.1 Chronic obstructive pulmonary disease with (acute) exacerbation; N17.9 Acute kidney failure, unspecified; J44.0 Chronic obstructive pulmonary disease with (acute) lower respiratory infection; K92.2 Gastrointestinal hemorrhage, unspecified; N39.0 Urinary tract infection, site not specified; D69.6 Thrombocytopenia, unspecified; E11.65 Type 2 diabetes mellitus with hyperglycemia; E66.9 Obesity, unspecified; E78.5 Hyperlipidemia, unspecified; K74.60 Unspecified cirrhosis of liver; D63.8 Anemia in other chronic diseases classified elsewhere; E11.22 Type 2 diabetes mellitus with diabetic chronic kidney disease; E66.01 Morbid (severe) obesity due to excess calories; N18.30 Chronic kidney disease, stage 3 unspecified; T38.0X5A Adverse effect of glucocorticoids and synthetic analogues, initial encounter; Y92.89 Other specified places as the place of occurrence of the external cause; Z88.0 Allergy status to penicillin; Z68.31 Body mass index [BMI] 31.0-31.9, adult; Z83.3 Family history of diabetes mellitus; Z82.5 Family history of asthma and other chronic lower respiratory diseases; Z87.11 Personal history of peptic ulcer disease; Z87.891 Personal history of nicotine dependence
CPT/HCPCS: 36415; 71045; 71250; 74176; 80048; 80053; 81001; 82105; 82270; 82962; 83036; 83735; 83880; 84443; 84484; 85025; 85610; 85730; 87086; 87493; 93306; 94640; C9113; G0378; J0696; J1815

== ENCOUNTER 2023-04-25 02:28 | Inpatient (IN) | payer OTHER ==
[~2023-04-25] VITALS: Ht 162.6 cm; Wt 89.7 kg
[~2023-04-25 02:28] MED LIST changes: +LEVO50TA7 PO; +LEVO750T8 PO
[2023-04-25 03:19] LABS: Basophils # (auto) 0 10 ^3/uL (0-0.2); Basophils % (auto) 0.8 % (0.0-2.0); Eosinophils # (auto) 0.2 10 ^3/uL (0-0.8); Eosinophils % (auto) 5.5 % (0.0-7.0); Hematocrit 31.8 % (36.0-46.0); Hemoglobin 10.5 g/dL (12.2-16.2); Lymphocytes # (auto) 0.6 10 ^3/uL (0.4-5.4); Lymphocytes % (auto) 13.9 % (10.0-50.0); Mean Corpuscular Hemoglobin 27.5 pg (28.0-32.0); Mean Corpuscular Hgb Conc. 33.1 g/dL (32.0-36.0); Mean Corpuscular Volume 83.2 fL (80.0-100.0); Monocytes # (auto) 0.4 10 ^3/uL (0-1.3); Monocytes % (auto) 9.2 % (0.0-12.0); Neutrophils # (auto) 3.1 10 ^3/uL (1.6-8.6); Neutrophils % (auto) 70.6 % (37.0-80.0); Nucleated Red Blood Cells % 0.2 %; Red Blood Cells 3.82 10^6/uL (4.0-5.20); Red Cell Distribution Width 16.3 % (11.8-14.3); White Blood Cell 4.4 10^3/uL (4.4-10.8)
[2023-04-25 03:35] LABS: Albumin 1.9 g/dL (3.4-5.0); Calcium 8.3 mg/dL (8.5-10.1); Potassium 3.8 mmol/L (3.5-5.1)
[2023-04-25 03:39] LABS: Bilirubin, Total 0.9 mg/dL (0.2-1.0); Total Protein 5.7 g/dL (6.4-8.2)
[2023-04-25] MEDS ORDERED: SODIUM CHLORIDE 0.9% 1,000 ML IV ONE (07:00)
[2023-04-25] MEDS ORDERED: SODIUM CHLORIDE 0.9% 1,000 ML IVB ONE (07:15)
[2023-04-25] MEDS ORDERED: MORPHINE SULFATE 4 MG/ML SYR/VIAL IV ONE (07:15)
[2023-04-25] MEDS ORDERED: ONDANSETRON HCL 4 MG/2 ML VIAL IV ONE (07:15)
[2023-04-25 07:42] LABS: Basophils # (auto) 0 10 ^3/uL (0-0.2); Eosinophils # (auto) 0.3 10 ^3/uL (0-0.8); Eosinophils % (auto) 6.3 % (0.0-7.0); Hematocrit 29.4 % (36.0-46.0); Lymphocytes # (auto) 0.6 10 ^3/uL (0.4-5.4); Lymphocytes % (auto) 13.6 % (10.0-50.0); Mean Corpuscular Hemoglobin 27.6 pg (28.0-32.0); Mean Corpuscular Hgb Conc. 33.9 g/dL (32.0-36.0); Mean Corpuscular Volume 81.3 fL (80.0-100.0); Monocytes # (auto) 0.4 10 ^3/uL (0-1.3); Monocytes % (auto) 9.3 % (0.0-12.0); Neutrophils # (auto) 3.2 10 ^3/uL (1.6-8.6); Neutrophils % (auto) 69.8 % (37.0-80.0); Nucleated Red Blood Cells % 0.1 %; Red Blood Cells 3.62 10^6/uL (4.0-5.20); Red Cell Distribution Width 16.1 % (11.8-14.3); White Blood Cell 4.6 10^3/uL (4.4-10.8)
[2023-04-25 07:57] LABS: INR 1.26 (0.9-1.15); Partial Thromboplastin Time 31.7 SEC (24.5-34.5)
[2023-04-25 08:05] LABS: Albumin 1.8 g/dL (3.4-5.0); Calcium 8.1 mg/dL (8.5-10.1); Potassium 3.7 mmol/L (3.5-5.1)
[2023-04-25 08:08] LABS: BUN/Creatinine Ratio 21.4 (10.0-20.0); Bilirubin, Total 0.8 mg/dL (0.2-1.0); Total Protein 5.1 g/dL (6.4-8.2)
[2023-04-25] MEDS ORDERED: cefTRIAXone 1GM/50ML D5W 50 ML IV ONE (08:45)
[2023-04-25] MEDS ORDERED: SULFAMETH-TRIMETH 80/16MG-ML 15 ML in D5W 5% 500 ML IV ONE (08:45)
[2023-04-25] MEDS ORDERED: diphenhdrAMINE HCL 50 MG/1 ML VL IV ONE (10:30)
[2023-04-25] MEDS ORDERED: VANCOMYCIN PER PHARMACY 0 MG IV SCH (12:00)
[2023-04-25] MEDS ORDERED: MORPHINE SULFATE INJ 2 MG/ml SYRG IV PRN (12:00)
[2023-04-25] MEDS: ACCU-CHEK COMFORT CURVE STRIP VI SCH ×3 (12:00→22:59)
[2023-04-25] MEDS ORDERED: ONDANSETRON HCL 4 MG/2 ML VIAL IV PRN (12:00)
[2023-04-25] MEDS: InsuLIN REG 1unit/0.01ml Soln (100units/ml) SC SCH ×3 (12:00→22:59)
[2023-04-25] MEDS ORDERED: DEXTROSE (50%) 50ML SYRG IV PRN (12:00)
[2023-04-25 13:11] VITALS: BP 133/73
[2023-04-25] MEDS ORDERED: VANCOMYCIN 1GM/250ML 250 ML IV ONE (13:15)
[2023-04-25] MEDS ORDERED: fentaNYL CITRATE 100 MCG/2 ML VL IV ONE (13:45)
[2023-04-25] MEDS ORDERED: HALOPERIDOL LACTATE 5 MG/ML INJ VIAL IM PRN (13:45)
[2023-04-25] MEDS: SUCRALFATE 1 GM TAB PO SCH ×2 (14:00→16:21)
[2023-04-25] MEDS: SODIUM CHLORIDE 0.9% 1,000 ML IV SCH (14:06)
[2023-04-25] MEDS ORDERED: HALOPERIDOL LACTATE 5 MG/ML INJ VIAL IM STA (15:58)
[2023-04-25] MEDS: LACTULOSE 20Gm/30ML SOLN PO SCH (22:00)
[2023-04-25] MEDS: METOPROLOL TARTRATE 25 MG TAB PO SCH (22:00)
[2023-04-25] MEDS: PRAVASTATIN SODIUM 20 MG TAB PO SCH (22:00)
[2023-04-25] MEDS: PROPRANOLOL HCL 20 MG TAB PO SCH (22:00)
[2023-04-25] MEDS: ALBUTEROL SULF 2.5 MG/0.5ML(0.5%) NEB SOLN NEB PRN (22:30)
[2023-04-25] MEDS: BUDESONIDE (INHALATION) 0.5 MG/2 ML NEB NEB SCH (22:30)
[2023-04-25] MEDS: IPRATROPIUM BROM 0.5 MG/2.5ML INH SOL NEB PRN (22:30)
[2023-04-26] VITALS (7 sets, daily range): BP systolic 81–115; BP diastolic 45–61
[2023-04-26] MEDS: InsuLIN REG 1unit/0.01ml Soln (100units/ml) SC SCH ×4 (04:46→23:53)
[2023-04-26] MEDS: ACCU-CHEK COMFORT CURVE STRIP VI SCH ×4 (04:46→23:52)
[2023-04-26] MEDS: SODIUM CHLORIDE 0.9% 1,000 ML IV SCH ×2 (04:47→21:36)
[2023-04-26] MEDS: LEVOTHYROXINE SODIUM 50 MCG TAB PO SCH (06:15)
[2023-04-26] MEDS: SUCRALFATE 1 GM TAB PO SCH ×3 (06:15→17:00)
[2023-04-26 06:19] LABS: Eosinophils # (auto) 0.2 10 ^3/uL (0-0.8); Hemoglobin 9.7 g/dL (12.2-16.2); Lymphocytes # (auto) 0.7 10 ^3/uL (0.4-5.4); Monocytes # (auto) 0.4 10 ^3/uL (0-1.3); Neutrophils # (auto) 3.9 10 ^3/uL (1.6-8.6); Red Cell Distribution Width 16.1 % (11.8-14.3); White Blood Cell 5.2 10^3/uL (4.4-10.8)
[2023-04-26 06:21] LABS: Basophils # (auto) 0 10 ^3/uL (0-0.2); Basophils % (auto) 0.6 % (0.0-2.0); Hematocrit 29.1 % (36.0-46.0); Lymphocytes % (auto) 13.1 % (10.0-50.0); Mean Corpuscular Hemoglobin 27.8 pg (28.0-32.0); Mean Corpuscular Hgb Conc. 33.5 g/dL (32.0-36.0); Mean Corpuscular Volume 82.9 fL (80.0-100.0); Monocytes % (auto) 7.8 % (0.0-12.0); Neutrophils % (auto) 74.5 % (37.0-80.0); Red Blood Cells 3.51 10^6/uL (4.0-5.20)
[2023-04-26 06:22] LABS: Albumin 1.8 g/dL (3.4-5.0); BUN/Creatinine Ratio 20.5 (10.0-20.0)
[2023-04-26 06:25] LABS: Bilirubin, Total 0.8 mg/dL (0.2-1.0); Total Protein 5.3 g/dL (6.4-8.2)
[2023-04-26] MEDS: BUDESONIDE (INHALATION) 0.5 MG/2 ML NEB NEB SCH ×2 (07:16→18:39)
[2023-04-26] MEDS ORDERED: INSLANTI SC (09:46)
[2023-04-26] MEDS ORDERED: FAMO-12 PO (09:46)
[2023-04-26] MEDS ORDERED: FERR1TAB36 PO (09:46)
[2023-04-26] MEDS ORDERED: ZOFR4T PO (09:46)
[2023-04-26] MEDS ORDERED: HYDR-4902 PO (09:46)
[2023-04-26] MEDS ORDERED: FURO1TAB31 PO (09:46)
[2023-04-26] MEDS ORDERED: CLON-853 PO (09:46)
[2023-04-26] MEDS ORDERED: METO25TA93 PO (09:46)
[2023-04-26] MEDS ORDERED: PROP1TAB51 PO (09:46)
[2023-04-26] MEDS ORDERED: PANT40TA2 PO (09:46)
[2023-04-26] MEDS ORDERED: SUCR1TAB PO (09:46)
[2023-04-26] MEDS ORDERED: TEMA15CA2 PO (09:46)
[2023-04-26] MEDS ORDERED: LEVO50TA7 PO (09:46)
[2023-04-26] MEDS ORDERED: SPIR25TA8 PO (09:46)
[2023-04-26] MEDS: LACTULOSE 20Gm/30ML SOLN PO SCH ×2 (10:19→21:37)
[2023-04-26] MEDS: PANTOPRAZOLE 40 MG/10 ML VIAL INJ IV SCH (10:20)
[2023-04-26] MEDS: levoFLOXacin 500MG 100 ML IV SCH (10:21)
[2023-04-26] MEDS: FERROUS SULFATE 325mg EC TAB PO SCH (10:22)
[2023-04-26] MEDS: MULTIPLE VITAMINS W/ MINERALS TAB PO SCH (10:22)
[2023-04-26] MEDS: PROPRANOLOL HCL 20 MG TAB PO SCH ×2 (10:22→21:37)
[2023-04-26] MEDS: FUROSEMIDE 40 MG TAB PO SCH (10:22)
[2023-04-26] MEDS: SPIRONOLACTONE 25 MG TAB PO SCH (10:23)
[2023-04-26] MEDS: METOPROLOL TARTRATE 25 MG TAB PO SCH ×2 (10:23→21:38)
[2023-04-26] MEDS: BENAZEPRIL HCL 10 MG TAB PO SCH (11:04)
[2023-04-26] MEDS: VANCOMYCIN 1GM/250ML 250 ML IV SCH (11:37)
[2023-04-26] MEDS: ALBUTEROL SULF 2.5 MG/0.5ML(0.5%) NEB SOLN NEB PRN (18:39)
[2023-04-26] MEDS: IPRATROPIUM BROM 0.5 MG/2.5ML INH SOL NEB PRN (18:39)
[2023-04-26] MEDS: PRAVASTATIN SODIUM 20 MG TAB PO SCH (21:34)
[2023-04-26] MEDS ORDERED: ALBUMIN 5% 250 ML IV ONE (22:30)
[2023-04-27 05:00] VITALS: BP 86/48
[2023-04-27] MEDS: SUCRALFATE 1 GM TAB PO SCH ×3 (06:15→16:55)
[2023-04-27] MEDS: ACCU-CHEK COMFORT CURVE STRIP VI SCH ×3 (06:15→16:56)
[2023-04-27] MEDS: LEVOTHYROXINE SODIUM 50 MCG TAB PO SCH (06:15)
[2023-04-27] MEDS: InsuLIN REG 1unit/0.01ml Soln (100units/ml) SC SCH ×3 (06:19→16:56)
[2023-04-27 07:58] LABS: Basophils # (auto) 0 10 ^3/uL (0-0.2); Basophils % (auto) 0.7 % (0.0-2.0); Eosinophils # (auto) 0.2 10 ^3/uL (0-0.8); Eosinophils % (auto) 3.9 % (0.0-7.0); Hematocrit 29.2 % (36.0-46.0); Hemoglobin 9.5 g/dL (12.2-16.2); Lymphocytes # (auto) 0.6 10 ^3/uL (0.4-5.4); Mean Corpuscular Hemoglobin 27.1 pg (28.0-32.0); Mean Corpuscular Hgb Conc. 32.6 g/dL (32.0-36.0); Monocytes # (auto) 0.4 10 ^3/uL (0-1.3); Monocytes % (auto) 7.7 % (0.0-12.0); Neutrophils % (auto) 76.7 % (37.0-80.0); Red Blood Cells 3.52 10^6/uL (4.0-5.20); Red Cell Distribution Width 16.3 % (11.8-14.3); White Blood Cell 5.2 10^3/uL (4.4-10.8)
[2023-04-27 08:02] LABS: Albumin 1.9 g/dL (3.4-5.0); BUN/Creatinine Ratio 17.5 (10.0-20.0); Calcium 7.8 mg/dL (8.5-10.1); Potassium 4.2 mmol/L (3.5-5.1)
[2023-04-27 08:05] LABS: Bilirubin, Total 0.7 mg/dL (0.2-1.0); Total Protein 4.8 g/dL (6.4-8.2)
[2023-04-27 09:00] VITALS: BP 95/50
[2023-04-27] MEDS: LACTULOSE 20Gm/30ML SOLN PO SCH ×2 (09:01→21:54)
[2023-04-27] MEDS: BENAZEPRIL HCL 10 MG TAB PO SCH (09:02)
[2023-04-27] MEDS: ALBUMIN 25% 100 ML IV SCH ×2 (09:05→16:55)
[2023-04-27] MEDS: FERROUS SULFATE 325mg EC TAB PO SCH (09:05)
[2023-04-27] MEDS: PANTOPRAZOLE 40 MG/10 ML VIAL INJ IV SCH (09:06)
[2023-04-27] MEDS: FUROSEMIDE 40 MG TAB PO SCH (09:06)
[2023-04-27] MEDS: PROPRANOLOL HCL 20 MG TAB PO SCH ×2 (09:06→21:57)
[2023-04-27] MEDS: levoFLOXacin 500MG 100 ML IV SCH (09:06)
[2023-04-27] MEDS: MULTIPLE VITAMINS W/ MINERALS TAB PO SCH (09:06)
[2023-04-27] MEDS: METOPROLOL TARTRATE 25 MG TAB PO SCH ×2 (09:08→22:00)
[2023-04-27] MEDS: SPIRONOLACTONE 25 MG TAB PO SCH (09:08)
[2023-04-27] MEDS: BUDESONIDE (INHALATION) 0.5 MG/2 ML NEB NEB SCH ×2 (11:20→18:56)
[2023-04-27] MEDS: IPRATROPIUM BROM 0.5 MG/2.5ML INH SOL NEB PRN ×2 (11:31→18:56)
[2023-04-27] MEDS: ALBUTEROL SULF 2.5 MG/0.5ML(0.5%) NEB SOLN NEB PRN ×2 (11:31→18:56)
[2023-04-27] MEDS: VANCOMYCIN 1GM/250ML 250 ML IV SCH (12:03)
[2023-04-27 13:00] VITALS: BP 91/50
[2023-04-27] MEDS: SODIUM CHLORIDE 0.9% 1,000 ML IV SCH (13:45)
[2023-04-27 17:00] VITALS: BP 88/51
[2023-04-27] MEDS ORDERED: CLINIMIX PER PHARMACY 0 ML IV SCH (20:00)
[2023-04-27] MEDS: PRAVASTATIN SODIUM 20 MG TAB PO SCH (21:55)
[2023-04-27 22:00] VITALS: BP 97/67
[2023-04-28] MEDS: ACCU-CHEK COMFORT CURVE STRIP VI SCH ×4 (01:09→16:54)
[2023-04-28] MEDS: InsuLIN REG 1unit/0.01ml Soln (100units/ml) SC SCH ×4 (01:11→16:58)
[2023-04-28] MEDS: ALBUMIN 25% 100 ML IV SCH (01:20)
[2023-04-28 05:00] VITALS: BP 93/57
[2023-04-28 05:45] VITALS: BP 93/57
[2023-04-28 06:04] LABS: Basophils # (auto) 0 10 ^3/uL (0-0.2); Basophils % (auto) 0.6 % (0.0-2.0); Eosinophils # (auto) 0.1 10 ^3/uL (0-0.8); Hemoglobin 8.2 g/dL (12.2-16.2); Lymphocytes # (auto) 0.4 10 ^3/uL (0.4-5.4); Monocytes # (auto) 0.3 10 ^3/uL (0-1.3); Neutrophils # (auto) 2.4 10 ^3/uL (1.6-8.6); Neutrophils % (auto) 73.8 % (37.0-80.0); White Blood Cell 3.3 10^3/uL (4.4-10.8)
[2023-04-28 06:06] LABS: Eosinophils % (auto) 4.1 % (0.0-7.0); Hematocrit 24.4 % (36.0-46.0); Lymphocytes % (auto) 12.2 % (10.0-50.0); Mean Corpuscular Hemoglobin 27.4 pg (28.0-32.0); Mean Corpuscular Hgb Conc. 33.7 g/dL (32.0-36.0); Mean Corpuscular Volume 81.2 fL (80.0-100.0); Monocytes % (auto) 9.3 % (0.0-12.0); Red Blood Cells 3.01 10^6/uL (4.0-5.20); Red Cell Distribution Width 16.2 % (11.8-14.3)
[2023-04-28] MEDS: SUCRALFATE 1 GM TAB PO SCH ×3 (06:06→16:54)
[2023-04-28] MEDS: LEVOTHYROXINE SODIUM 50 MCG TAB PO SCH (06:07)
[2023-04-28 06:08] LABS: INR 1.42 (0.9-1.15)
[2023-04-28] MEDS: SODIUM CHLORIDE 0.9% 1,000 ML IV SCH ×2 (06:10→23:20)
[2023-04-28 06:32] LABS: Potassium 3.8 mmol/L (3.5-5.1)
[2023-04-28 06:43] LABS: Albumin 2.6 g/dL (3.4-5.0); BUN/Creatinine Ratio 20.1 (10.0-20.0); Bilirubin, Total 0.9 mg/dL (0.2-1.0); Calcium 8.4 mg/dL (8.5-10.1); Total Protein 5.1 g/dL (6.4-8.2)
[2023-04-28] MEDS: BUDESONIDE (INHALATION) 0.5 MG/2 ML NEB NEB SCH ×2 (07:17→19:01)
[2023-04-28] MEDS: ALBUTEROL SULF 2.5 MG/0.5ML(0.5%) NEB SOLN NEB PRN ×2 (07:17→19:01)
[2023-04-28] MEDS: IPRATROPIUM BROM 0.5 MG/2.5ML INH SOL NEB PRN ×2 (07:17→19:01)
[2023-04-28 09:00] VITALS: BP 123/69
[2023-04-28] MEDS: METOPROLOL TARTRATE 25 MG TAB PO SCH ×2 (10:00→21:53)
[2023-04-28] MEDS: FUROSEMIDE 40 MG TAB PO SCH (10:00)
[2023-04-28] MEDS: PROPRANOLOL HCL 20 MG TAB PO SCH ×2 (10:00→21:57)
[2023-04-28] MEDS: LACTULOSE 20Gm/30ML SOLN PO SCH ×2 (10:00→21:52)
[2023-04-28] MEDS: SPIRONOLACTONE 25 MG TAB PO SCH (10:00)
[2023-04-28] MEDS: BENAZEPRIL HCL 10 MG TAB PO SCH (10:00)
[2023-04-28] MEDS ORDERED: PANTOPRAZOLE 40 MG TAB PO ONE (10:30)
[2023-04-28] MEDS: FERROUS SULFATE 325mg EC TAB PO SCH (10:30)
[2023-04-28] MEDS: MULTIPLE VITAMINS W/ MINERALS TAB PO SCH (10:30)
[2023-04-28] MEDS: levoFLOXacin 500MG 100 ML IV SCH (10:31)
[2023-04-28] MEDS: VANCOMYCIN 1GM/250ML 250 ML IV SCH (11:00)
[2023-04-28 13:00] VITALS: BP 91/41
[2023-04-28 17:00] VITALS: BP 116/64
[2023-04-28] MEDS: PRAVASTATIN SODIUM 20 MG TAB PO SCH (21:52)
[2023-04-28 22:03] VITALS: BP 112/55
[2023-04-29] MEDS: ACCU-CHEK COMFORT CURVE STRIP VI SCH ×5 (00:32→23:28)
[2023-04-29] MEDS: InsuLIN REG 1unit/0.01ml Soln (100units/ml) SC SCH ×5 (00:36→23:31)
[2023-04-29 05:00] VITALS: BP 112/60
[2023-04-29] MEDS: LEVOTHYROXINE SODIUM 50 MCG TAB PO SCH (06:08)
[2023-04-29] MEDS: SUCRALFATE 1 GM TAB PO SCH ×3 (06:08→16:43)
[2023-04-29] MEDS: BUDESONIDE (INHALATION) 0.5 MG/2 ML NEB NEB SCH ×2 (07:38→19:08)
[2023-04-29] MEDS: ALBUTEROL SULF 2.5 MG/0.5ML(0.5%) NEB SOLN NEB PRN ×2 (07:38→19:08)
[2023-04-29] MEDS: IPRATROPIUM BROM 0.5 MG/2.5ML INH SOL NEB PRN ×2 (07:38→19:08)
[2023-04-29 09:00] VITALS: BP 114/43
[2023-04-29] MEDS: FUROSEMIDE 40 MG TAB PO SCH (10:00)
[2023-04-29] MEDS: BENAZEPRIL HCL 10 MG TAB PO SCH (10:00)
[2023-04-29] MEDS: LACTULOSE 20Gm/30ML SOLN PO SCH ×2 (10:00→22:00)
[2023-04-29] MEDS: PROPRANOLOL HCL 20 MG TAB PO SCH ×2 (10:00→22:00)
[2023-04-29] MEDS: SPIRONOLACTONE 25 MG TAB PO SCH (10:00)
[2023-04-29] MEDS: METOPROLOL TARTRATE 25 MG TAB PO SCH ×2 (10:16→22:00)
[2023-04-29] MEDS: levoFLOXacin 500MG 100 ML IV SCH (10:16)
[2023-04-29] MEDS: MULTIPLE VITAMINS W/ MINERALS TAB PO SCH (10:17)
[2023-04-29] MEDS: FERROUS SULFATE 325mg EC TAB PO SCH (10:17)
[2023-04-29] MEDS: PANTOPRAZOLE 40 MG TAB PO SCH (10:17)
[2023-04-29] MEDS ORDERED: ALPRAZolam 0.25 MG TAB PO PRN (12:15)
[2023-04-29] MEDS ORDERED: ALBUMIN 25% 100 ML IV ONE (12:15)
[2023-04-29 13:00] VITALS: BP 138/55
[2023-04-29] MEDS: SODIUM CHLORIDE 0.9% 1,000 ML IV SCH (16:00)
[2023-04-29 16:42] LABS: Basophils # (auto) 0 10 ^3/uL (0-0.2); Eosinophils # (auto) 0.2 10 ^3/uL (0-0.8); Eosinophils % (auto) 3.5 % (0.0-7.0); Hematocrit 29.2 % (36.0-46.0); Hemoglobin 9.8 g/dL (12.2-16.2); Lymphocytes # (auto) 0.4 10 ^3/uL (0.4-5.4); Lymphocytes % (auto) 9.3 % (10.0-50.0); Mean Corpuscular Hemoglobin 27.7 pg (28.0-32.0); Mean Corpuscular Hgb Conc. 33.4 g/dL (32.0-36.0); Mean Corpuscular Volume 82.7 fL (80.0-100.0); Monocytes # (auto) 0.3 10 ^3/uL (0-1.3); Monocytes % (auto) 6.3 % (0.0-12.0); Neutrophils # (auto) 3.8 10 ^3/uL (1.6-8.6); Neutrophils % (auto) 79.9 % (37.0-80.0); Nucleated Red Blood Cells % 0.1 %; Red Blood Cells 3.53 10^6/uL (4.0-5.20); Red Cell Distribution Width 16.2 % (11.8-14.3); White Blood Cell 4.7 10^3/uL (4.4-10.8)
[2023-04-29 16:50] LABS: Calcium 8.7 mg/dL (8.5-10.1); Potassium 4.2 mmol/L (3.5-5.1)
[2023-04-29 16:52] LABS: BUN/Creatinine Ratio 16.9 (10.0-20.0)
[2023-04-29 16:53] VITALS: BP 95/53
[2023-04-29] MEDS: PRAVASTATIN SODIUM 20 MG TAB PO SCH (21:59)
[2023-04-29 22:00] VITALS: BP 114/57
[2023-04-30 05:00] VITALS: BP 106/53
[2023-04-30] MEDS: InsuLIN REG 1unit/0.01ml Soln (100units/ml) SC SCH (06:00)
[2023-04-30] MEDS: SUCRALFATE 1 GM TAB PO SCH ×2 (06:12→06:24)
[2023-04-30] MEDS: LEVOTHYROXINE SODIUM 50 MCG TAB PO SCH ×2 (06:12→06:24)
[2023-04-30] MEDS: ACCU-CHEK COMFORT CURVE STRIP VI SCH (06:23)
[2023-04-30] MEDS: SODIUM CHLORIDE 0.9% 1,000 ML IV SCH (08:40)
[2023-04-30 09:00] VITALS: BP 103/45
[2023-04-30] MEDS: SPIRONOLACTONE 25 MG TAB PO SCH (10:00)
[2023-04-30] MEDS: FUROSEMIDE 40 MG TAB PO SCH (10:00)
[2023-04-30] MEDS: PROPRANOLOL HCL 20 MG TAB PO SCH (10:00)
[2023-04-30] MEDS: BENAZEPRIL HCL 10 MG TAB PO SCH (10:00)
[2023-04-30] MEDS: LACTULOSE 20Gm/30ML SOLN PO SCH (10:00)
[2023-04-30] MEDS: PANTOPRAZOLE 40 MG TAB PO SCH (10:17)
[2023-04-30] MEDS: MULTIPLE VITAMINS W/ MINERALS TAB PO SCH (10:17)
[2023-04-30] MEDS: FERROUS SULFATE 325mg EC TAB PO SCH (10:17)
[2023-04-30] MEDS: METOPROLOL TARTRATE 25 MG TAB PO SCH (10:22)
[2023-04-30] MEDS: BUDESONIDE (INHALATION) 0.5 MG/2 ML NEB NEB SCH (10:30)
[2023-04-30] MEDS ORDERED: CEPH500C PO (10:43)
== END 2023-04-30 15:18 | disposition home or self-care (01) | DRG 393 ==
LOC: ER 02:28 → EDBD 02:28 → TELE 11:46 → TELE-WESTW 21:40
PROVIDERS: ADMIT Nurse Practitioner Family; ATTEND Internal Medicine
PROC: 0W9G3ZZ Drainage of Peritoneal Cavity, Percutaneous Approach (ICD-10-PCS; principal; 2023-04-29)
PROC: BW40ZZZ Ultrasonography of Abdomen (ICD-10-PCS; 2023-04-29)
DX: K42.9 Umbilical hernia without obstruction or gangrene (principal); E43 Unspecified severe protein-calorie malnutrition; J69.0 Pneumonitis due to inhalation of food and vomit; N17.0 Acute kidney failure with tubular necrosis; J96.21 Acute and chronic respiratory failure with hypoxia; L03.316 Cellulitis of umbilicus; R18.8 Other ascites; J44.1 Chronic obstructive pulmonary disease with (acute) exacerbation; D68.9 Coagulation defect, unspecified; K76.6 Portal hypertension; N18.30 Chronic kidney disease, stage 3 unspecified; E11.65 Type 2 diabetes mellitus with hyperglycemia; D63.8 Anemia in other chronic diseases classified elsewhere; E03.9 Hypothyroidism, unspecified; D69.6 Thrombocytopenia, unspecified; E78.5 Hyperlipidemia, unspecified; E11.22 Type 2 diabetes mellitus with diabetic chronic kidney disease; E66.9 Obesity, unspecified; I12.9 Hypertensive chronic kidney disease with stage 1 through stage 4 chronic kidney disease, or unspecified chronic kidney disease; K74.60 Unspecified cirrhosis of liver; Z90.49 Acquired absence of other specified parts of digestive tract; Z68.34 Body mass index [BMI] 34.0-34.9, adult; Z79.4 Long term (current) use of insulin; Z79.84 Long term (current) use of oral hypoglycemic drugs; Z79.51 Long term (current) use of inhaled steroids; Z79.899 Other long term (current) drug therapy; Z82.5 Family history of asthma and other chronic lower respiratory diseases; Z83.3 Family history of diabetes mellitus; Z87.11 Personal history of peptic ulcer disease; Z88.0 Allergy status to penicillin; Z99.81 Dependence on supplemental oxygen; R16.0 Hepatomegaly, not elsewhere classified
CPT/HCPCS: 36415; 71045; 74176; 76705; 76942; 80048; 80053; 80202; 82105; 82140; 82378; 82962; 83605; 83690; 83986; 84484; 85025; 85610; 85730; 87040; 87081; 87205; 89051; 92610; 93005; 94640; 96361; 96365; 96366; 96368; 96372; 96375; C9113; G0378; J0696; J1815; J1956; J2405; J3490; P9047